=== PATIENT | female | born 1935 ===

== ENCOUNTER 2021-09-23 13:36 | Outpatient (CLI) | payer MEDICARE, OTHER ==
[2021-09-23 15:43] LABS: Hemoglobin 11.7 g/dL (12.0-15.5); Mean Corpuscular HGB CONC 32.5 g/dL (32.0-36.0); Mean Corpuscular Hemoglobin 30.3 pg (27.0-33.0); Mean Corpuscular Volume 93.3 fl (81.6-98.3); Mean Platelet Volume 11.3 fl (7.4-10.4); Platelet Count 304 10x3/uL (150-450); RBC Distribution Width 13.2 % (11.5-14.5); Red Blood Cell (RBC) Count 3.86 10x6/uL (3.90-5.03); White Blood Cell (WBC) Count 9.9 10x3/uL (3.5-10.5)
[2021-09-23 15:57] LABS: PTT 26.8 sec (22.0-33.0); Prothrombin Time 10.9 sec (9.5-12.1)
[2021-09-23 16:16] LABS: Anion Gap 13 mmol/L (10-20); BUN (Urea Nitrogen) 28 mg/dL (9.8-20.1); Calc. Creatinine Clearance 0 mL/min (70-130); Calcium 9.9 mg/dL (7.8-10.44); Carbon Dioxide 26 mmol/L (23-31); Chloride 105 mmol/L (98-107); Glucose 81 mg/dL (83-110); Potassium 4.2 mmol/L (3.5-5.1); Sodium 140 mmol/L (136-145)
== END 2021-09-23 13:37 | disposition home or self-care (01) ==
LOC: CSHLAB 13:36
PROVIDERS: ATTEND Internal Medicine Cardiovascular Disease
DX: Z01.818 Encounter for other preprocedural examination (principal); Z20.822 Contact with and (suspected) exposure to COVID-19
CPT/HCPCS: 71046; 80048; 85027; 85610; 85730; 93005; 93010; U0003; U0005

== ENCOUNTER 2021-09-26 08:22 | Inpatient (IN) | payer MEDICARE, OTHER ==
[2021-09-26] MEDS ORDERED: Aspirin Chewable 81 MG TAB ONE (08:44)
[2021-09-26 09:25] VITALS: TEMP 98.2
[2021-09-26] MEDS ORDERED: Phenylephrine 40 MG/NS 250 ML 250 ML ONE (09:33)
[2021-09-26] MEDS ORDERED: PHENYLEPHRINE-NS 100 MCG/ML 10 ML SYRINGE ONE (09:41)
[2021-09-26] MEDS ORDERED: Nitroglycerin 50 MG/250 ML BOT 0 ML ONE (09:41)
[2021-09-26] MEDS ORDERED: Heparin 10,000 UNITS/ 10 ML VIAL ONE (09:41)
[2021-09-26] MEDS ORDERED: Atropine Sulfate 0.4 mg/1 ml Vial ONE (09:42)
[2021-09-26] MEDS ORDERED: Midazolam HCl 2 mg/2 ml Vial ONE (09:43)
[2021-09-26] MEDS ORDERED: Lidocaine 1% 20 ML MDV ONE (09:43)
[2021-09-26] MEDS ORDERED: Iopamidol 300 61% 100 ML VIAL FS ONE (10:08)
[2021-09-26] MEDS ORDERED: Iopamidol 300 61% 50 ML VIAL FS ONE (10:08)
[2021-09-26] MEDS ORDERED: Clopidogrel Bisulfate 300 MG TAB ONE (10:58)
[2021-09-26] MEDS ORDERED: Protamine Sulfate 50 MG/5 ML VIAL ONE (12:20)
[2021-09-26] MEDS ORDERED: Mag-Al 1200 mg/1200 mg/30 ML UDCUP PO PRN (12:31)
[2021-09-26] MEDS ORDERED: cloNIDine 0.1 MG TAB PO PRN (12:31)
[2021-09-26] MEDS ORDERED: Milk Of Magnesia 30 ML UDCUP PO PRN (12:31)
[2021-09-26 12:35] VITALS: BMI 24.1
[2021-09-26] MEDS ORDERED: Sodium Chloride 0.9% 1,000 ML IV SCH (12:45)
[2021-09-26] MEDS ORDERED: Aspirin Chewable 81 MG TAB PO SCH (21:00)
[2021-09-26] MEDS ORDERED: Atorvastatin Calcium 40 MG TAB PO SCH (21:00)
[2021-09-27 04:59] LABS: #Basophils 0.1 10x3/uL (0.0-0.2); #Eosinphils 0.4 10x3/uL (0.0-0.5); #Monocytes 0.8 10x3/uL (0.0-1.1); #Neutrophils 4.7 10x3/uL (1.5-8.4); %Basophils 1.1 % (0.0-2.0); %Lymphocytes 32.3 % (18.0-47.0); %Monocytes 9.2 % (0.0-10.0); %Neutrophils 53.1 % (40.0-75.0); Hemoglobin 10.5 g/dL (12.0-15.5); Mean Corpuscular HGB CONC 32.8 g/dL (32.0-36.0); Mean Corpuscular Hemoglobin 30.5 pg (27.0-33.0); Platelet Count 242 10x3/uL (150-450); RBC Distribution Width 13.2 % (11.5-14.5); Red Blood Cell (RBC) Count 3.44 10x6/uL (3.90-5.03); White Blood Cell (WBC) Count 8.8 10x3/uL (3.5-10.5)
[2021-09-27 05:12] LABS: ALT (SGPT) 14 U/L (8-55); AST (SGOT) 19 U/L (5-34); Albumin 3.6 g/dL (3.4-4.8); Alkaline Phosphatase 87 U/L (40-110); Anion Gap 14 mmol/L (10-20); BUN (Urea Nitrogen) 18 mg/dL (9.8-20.1); Bilirubin, Total 0.4 mg/dL (0.2-1.2); Calc. Creatinine Clearance 49 mL/min (70-130); Calcium 8.9 mg/dL (7.8-10.44); Carbon Dioxide 22 mmol/L (23-31); Chloride 109 mmol/L (98-107); Globulin 2.9 g/dL (2.4-3.5); Glucose 113 mg/dL (83-110); Potassium 4.1 mmol/L (3.5-5.1); Protein, Total 6.5 g/dL (5.8-8.1); Sodium 141 mmol/L (136-145)
[2021-09-27] MEDS ORDERED: Losartan Potassium 50 MG TAB PO SCH (09:00)
[2021-09-27] MEDS ORDERED: Amlodipine 10 MG TAB PO SCH (09:00)
[2021-09-27] MEDS ORDERED: Aspirin Chewable 81 MG TAB PO SCH (09:00)
[2021-09-27] MEDS ORDERED: Clopidogrel Bisulfate 75 MG TAB PO SCH (09:00)
[2021-09-27 09:36] VITALS: BP 139/52
== END 2021-09-27 13:13 | disposition home or self-care (01) | DRG 36 ==
LOC: CSHSDC 08:22 → CSHIMCU 12:23 → OBSVTOIN 12:31
PROVIDERS: ADMIT Internal Medicine Cardiovascular Disease; ATTEND Internal Medicine Cardiovascular Disease
PROC: 037K3DZ Dilation of Right Internal Carotid Artery with Intraluminal Device, Percutaneous Approach (ICD-10-PCS; principal; 2021-09-26)
PROC: B3101ZZ Fluoroscopy of Thoracic Aorta using Low Osmolar Contrast (ICD-10-PCS; 2021-09-26)
PROC: B3151ZZ Fluoroscopy of Bilateral Common Carotid Arteries using Low Osmolar Contrast (ICD-10-PCS; 2021-09-26)
DX: I65.23 Occlusion and stenosis of bilateral carotid arteries (principal); E78.5 Hyperlipidemia, unspecified; I10 Essential (primary) hypertension; I49.5 Sick sinus syndrome; Z95.0 Presence of cardiac pacemaker; Z88.8 Allergy status to other drugs, medicaments and biological substances; Z91.018 Allergy to other foods
CPT/HCPCS: 36223; 36227; 36415; 37215; 80053; 85025; 85347; 93005; 93010; 99152; 99153; C1760; C1769; C1876; C1894; J0461; J1644; J2250; J2720; J7050; Q9967